=== PATIENT | male | born 1950 | race Caucasian/White ===

== ENCOUNTER → 2024-05-31 14:25 | Outpatient (REF) | payer MEDICARE, OTHER, SELFPAY | LOC: RCS 14:25 | PROVIDERS: ATTENDING PHYSICIAN Internal Medicine Cardiovascular Disease; FAMILY PHYSICIAN Nurse Practitioner Adult Health | DX: R06.09 Other forms of dyspnea (principal) | CPT/HCPCS: 93017; 93350 ==

== ENCOUNTER 2024-12-15 06:14 | Day surgery (SDC) | payer MEDICARE, OTHER, SELFPAY | END 2024-12-15 11:34 | disposition home or self-care (01) | LOC: GI 06:14 | PROVIDERS: ATTENDING PHYSICIAN Specialist | DX: R10.11 Right upper quadrant pain (principal); K31.7 Polyp of stomach and duodenum; K31.89 Other diseases of stomach and duodenum | CPT/HCPCS: 43239; 88305; 88342 ==